=== PATIENT | female | born 1950 ===

== ENCOUNTER 2018-07-22 12:23 | Outpatient (CLI) | payer OTHER ==
[~2018-07-22] VITALS: Ht 160 cm; Wt 64.4 kg
== END 2018-07-22 12:40 | disposition home or self-care (01) ==
LOC: OFIC 805 12:23
DX: H61.23 Impacted cerumen, bilateral (principal); H90.3 Sensorineural hearing loss, bilateral

== ENCOUNTER 2019-07-03 10:36 | Outpatient (CLI) | payer OTHER ==
[~2019-07-03] VITALS: Ht 152.4 cm; Wt 65.8 kg
== END 2019-07-03 17:31 | disposition home or self-care (01) ==
LOC: OFIC 805 10:36
DX: H90.3 Sensorineural hearing loss, bilateral (principal); H61.23 Impacted cerumen, bilateral
CPT/HCPCS: 69210; 99213; G0463